=== PATIENT | male | born 1955 | race Caucasian/White ===

== ENCOUNTER 2016-10-22 20:07 | Observation (INO) | payer BC ==
[~2016-10-22] VITALS: Ht 172.7 cm; Wt 84.0 kg
[2016-10-22] MEDS ORDERED: SOD CHLORIDE 0.9% 500 ML IV STA (23:56)
[2016-10-22] MEDS ORDERED: ALBUTEROL 0.083% (NEB) 2.5 MG/3 ML AMP NEB STA (23:59)
[2016-10-23] VITALS (11 sets, daily range): BP systolic 124–143; BP diastolic 74–84; PULSE 67–90; RESP 17–19; Ht 172.7 cm; Wt 84.0 kg
[2016-10-23 00:56] LABS: BASOPHILS % 0.5 % (0.0-2.0); EOSINOPHILS # 0.1 10^3/ul (0.0-0.5); EOSINOPHILS % 1.1 % (0.0-7.0); HEMATOCRIT 37.5 % (42.0-52.0); HEMOGLOBIN 12.4 g/dl (14.0-18.0); LYMPHOCYTES # 2.1 10^3/ul (0.8-2.9); LYMPHOCYTES % 32.5 % (15.0-51.0); MEAN CORPUSCULAR HEMOGLOBIN 29.3 pg (29.0-33.0); MEAN CORPUSCULAR HGB CONC 33.1 g/dl (32.0-37.0); MEAN CORPUSCULAR VOLUME 88.7 fl (82.0-101.0); MEAN PLATELET VOLUME 9.7 fl (7.4-10.4); MONOCYTE # 0.7 10^3/ul (0.3-0.9); MONOCYTES % 10.5 % (0.0-11.0); NEUTROPHILS % 55.1 % (39.0-77.0); PLATELET COUNT 159 10^3/UL (140-415); RED BLOOD COUNT 4.23 10^6/ul (4.70-6.10); RED CELL DISTRIBUTION WIDTH 12.5 % (11.5-14.5); WHITE BLOOD COUNT 6.6 10^3/ul (4.8-10.8)
[2016-10-23 01:11] LABS: INR 0.91; PROTIME 12.2 Sec (12.2-14.2)
[2016-10-23 01:12] LABS: PARTIAL THROMBOPLASTIN TIME 23.7 Sec (25.0-35.0)
[2016-10-23 01:15] LABS: ALANINE AMINOTRANSFERASE 43 IU/L (13-69); ALBUMIN 4.2 g/dl (3.3-4.9); ALBUMIN/GLOBULIN RATIO 1.13; ALKALINE PHOSPHATASE 48 IU/L (42-121); ANION GAP 19 (8-16); ASPARTATE AMINO TRANSFERASE 25 IU/L (15-46); BILIRUBIN,INDIRECT 0.1 mg/dl (0-1.1); BILIRUBIN,TOTAL 0.1 mg/dl (0.2-1.3); BLOOD UREA NITROGEN 30 mg/dl (7-20); CALCIUM 10.5 mg/dl (8.4-10.2); CARBON DIOXIDE 25 mmol/L (21-31); CHLORIDE 103 mmol/L (97-110); CREATININE 0.98 mg/dl (0.61-1.24); GLUCOSE 83 mg/dl (70-220); POTASSIUM 4.7 mmol/L (3.5-5.1); SODIUM 142 mmol/L (135-144); TOTAL PROTEIN 7.9 g/dl (6.1-8.1)
--- NOTE | 2016-10-23 01:18 | RADRPT ---
PROCEDURE: XR Chest. CLINICAL INDICATION: Shortness of breath TECHNIQUE: Single frontal view of the chest was obtained COMPARISON: None FINDINGS: The heart and mediastinum are within normal limits. The lungs are clear. There is no pleural effusion or pneumothorax seen. ECG leads projected over the chest. Degenerativ e changes in thoracic spine. The patient is minimally rotated to the right. Minimal elevation of t he right hemidiaphragm. Possible surgical clip projected over the right lateral chest wall. IMPRESSION: No acute disease. Please see above. RPTAT: HJES .Eber Tomlinson MD, MD Date Time Electronically viewed and signed by .Eber Tomlinson MD, MD on 10/23/2016 01:18 .S/
[2016-10-23 01:22] LABS: B-TYPE NATRIURETIC PEPTIDE 19 PG/ML (0-125)
[2016-10-23 01:32] LABS: TROPONIN-I < 0.012 ng/ml (0.00-0.12)
[2016-10-23] MEDS ORDERED: SIMV20TA PO (01:48)
[2016-10-23] MEDS ORDERED: SITA1TAB5 PO (01:48)
[2016-10-23] MEDS ORDERED: GLIM4TAB PO (01:48)
[2016-10-23] MEDS ORDERED: BENA10TA48 PO (01:48)
[2016-10-23] MEDS ORDERED: DOCO1CAP2 PO (01:48)
[2016-10-23] MEDS ORDERED: ASPI-664 PO (01:48)
[2016-10-23] MEDS ORDERED: METO25TA7 PO (01:48)
[2016-10-23] MEDS ORDERED: FENO145T19 PO (01:48)
--- NOTE | 2016-10-23 04:01 | ERA ---
ER Documentation Chief Complaint Date/Time DATE: 10/23/16 TIME: 04:00 Chief Complaint c/o cough and easily fatigued x2-3 weeks. Hx: heart stent, DM, HTN HPI 61-year-old male complains of cough but is easily fatigued over the past 2-3 weeks. Also complains of chest pain. Chest pain is mild to moderate intensity no exacerbating or alleviating factors. Complains of exertional dyspnea as well patient has history of cardiac stenting in the past along with diabetes and hypertension. ROS All systems reviewed and are negative except as per history of present illness. Medications Home Meds Reported Medications Aspirin* (Aspirin* EC) 81 Mg Tablet.dr, 81 MG PO DAILY, TAB 10/23/16 Docosahexanoic Acid/Epa (Fish Oil Concentrate Softgel) 1 Each Capsule, 1 EACH PO , CAP 10/23/16 Sitagliptin Phos/Metformin HCl (Janumet 50-1,000 mg Tablet) 1 Each Tablet, 1 EACH PO BID, TAB 10/23/16 Fenofibrate Nanocrystallized* (Fenofibrate*) 145 Mg Tablet, 145 MG PO DAILY, TAB 10/23/16 Metoprolol Succinate* (Toprol XL*) 25 Mg Tab.sr.24h, 25 MG PO BID, #30 TAB 10/23/16 Glimepiride* (Glimepiride*) 4 Mg Tablet, 4 MG PO WITH BREAKFAST, TAB 10/23/16 Simvastatin* (Zocor*) 20 Mg Tablet, 20 MG PO QHS, #30 TAB 10/23/16 Benazepril Hcl* (Benazepril Hcl*) 10 Mg Tablet, 10 MG PO DAILY, #30 TAB 10/23/16 Allergies Allergies: Coded Allergies: No Known Allergy (Unverified , 10/23/16) PMhx/Soc History of Surgery: Yes (BILAT INGUENAL HERNIA) Anesthesia Reaction: No Hx Neurological Disorder: No Hx Respiratory Disorders: No Hx Cardiac Disorders: Yes (ANGIOPLASTY, HYPERLIPIDEMIA) Hx Psychiatric Problems: No Hx Miscellaneous Medical Probl: Yes (DIABETES) Hx Alcohol Use: Yes Hx Substance Use: No Hx Tobacco Use: No Smoking Status: Never smoker Physical Exam Vitals Vital Signs Date Time Temp Pulse Resp B/P Pulse Ox O2 Delivery O2 Flow Rate FiO2 10/23/16 02:33 79 20 137/84 98 Room Air 10/23/16 01:15 86 14 131/83 96 Room Air 10/23/16 00:29 3.0 10/23/16 00:25 74 15 122/74 97 Room Air 10/23/16 00:25 Nasal Cannula 2 10/23/16 00:18 74 18 100 Nasal Cannula 3.0 10/22/16 20:29 98.2 83 20 121/72 97 Physical Exam Const: [] Head: Atraumatic Eyes: Normal Conjunctiva ENT: Normal External Ears, Nose and Mouth. Neck: Full range of motion..~ No meningismus. Resp: Clear to auscultation bilaterally Cardio: Regular rate and rhythm, no murmurs Abd: Soft, non tender, non distended. Normal bowel sounds Skin: No petechiae or rashes Back: No midline or flank tenderness Ext: No cyanosis, or edema Neur: Awake and alert Psych: Normal Mood and Affect Result Diagram: 10/23/16 0020 10/23/16 0020 Results 24 hrs Laboratory Tests Test 10/23/16 00:20 White Blood Count 6.610^3/ul Red Blood Count 4.2310^6/ul Hemoglobin 12.4g/dl Hematocrit 37.5% Mean Corpuscular Volume 88.7fl Mean Corpuscular Hemoglobin 29.3pg Mean Corpuscular Hemoglobin Concent 33.1g/dl Red Cell Distribution Width 12.5% Platelet Count 36472^3/UL Mean Platelet Volume 9.7fl Neutrophils % 55.1% Lymphocytes % 32.5% Monocytes % 10.5% Eosinophils % 1.1% Basophils % 0.5% Nucleated Red Blood Cells % 0.0/100WBC Neutrophils # (Manual) 3.610^3/ul Lymphocytes # 2.110^3/ul Monocytes # 0.710^3/ul Eosinophils # 0.110^3/ul Basophils # 0.010^3/ul Nucleated Red Blood Cells # 0.010^3/ul Prothrombin Time 12.2Sec Prothrombin Time Ratio 1.0 INR International Normalized Ratio 0.91 Activated Partial Thromboplast Time 23.7Sec Sodium Level 142mmol/L Potassium Level 4.7mmol/L Chloride Level 103mmol/L Carbon Dioxide Level 25mmol/L Anion Gap 19 Blood Urea Nitrogen 30mg/dl Creatinine 0.98mg/dl Glucose Level 83mg/dl Calcium Level 10.5mg/dl Total Bilirubin 0.1mg/dl Direct Bilirubin 0.00mg/dl Indirect Bilirubin 0.1mg/dl Aspartate Amino Transf (AST/SGOT) 25IU/L Alanine Aminotransferase (ALT/SGPT) 43IU/L Alkaline Phosphatase 48IU/L Troponin I < 0.012ng/ml B-Type Natriuretic Peptide 19PG/ML Total Protein 7.9g/dl Albumin 4.2g/dl Globulin 3.70g/dl Albumin/Globulin Ratio 1.13 Current Medications Medications (Trade) Dose Ordered Sig/Janel Route PRN Reason Start Time Stop Time Status Last Admin Dose Admin Sodium Chloride (NS) 500 ml @ 500 mls/hr Q1H STAT IV 10/22/16 23:56 10/23/16 00:55 DC 10/22/16 23:56 Albuterol (Proventil 0.083% (Neb)) 5 mg ONCE STAT NEB 10/22/16 23:59 10/23/16 00:00 DC 10/23/16 00:17 Procedures/MDM EKG: Rate/Rhythm: Normal Sinus Rhythm QRS, ST, T-waves: No changes consistent w/ acute ischemia Impression: No evidence of ischemia or arrhythmia Chest X-ray 1V Interpreted by me: Soft Tissue: No acute abnormalities Bones: No acute abnormalities Mediastinum/Cardiac Silhouette/Lungs: No acute abnormalities Patient's symptoms are concerning for cardiac cause will require inpatient workup and continuous monitoring. Further w/u for ischemia, arrhythmia, PE or dissection will be deferred to the inpatient team. Accepting Care Team: Current data and ongoing care discussed. Time: 3:45 AM primary Provider: maximo Consulting: [[employer]OX[employer]] Outstanding Data: none Departure Diagnosis: Primary Impression: Fatigue Qualified Code: R53.83 - Fatigue, unspecified type Additional Impression: Chest pain Qualified Code: R07.9 - Chest pain, unspecified type Condition: Serious DIO POON Oct 23, 2016 04:01
[2016-10-23] MEDS ORDERED: ACETAMINOPHEN 325 MG TAB PO PRN (04:30)
[2016-10-23] MEDS ORDERED: MAGNESIUM HYDROXIDE 30ML CUP PO PRN (04:30)
[2016-10-23] MEDS ORDERED: ONDANSETRON 4 MG INJ IV PRN (04:30)
[2016-10-23] MEDS ORDERED: BISACODYL 10 MG SUPP PR PRN (04:30)
[2016-10-23] MEDS ORDERED: LORAZEPAM 0.5 MG TAB PO PRN (04:30)
[2016-10-23] MEDS ORDERED: NITROGLYCERIN (SL) 0.4 MG TAB SL PRN (04:30)
[2016-10-23] MEDS ORDERED: DOCUSATE SODIUM 100 MG CAP PO PRN (04:30)
[2016-10-23] MEDS ORDERED: NACL 0.9% 3 ML SYG IV SCH (04:30)
[2016-10-23] MEDS ORDERED: ALBUTEROL/IPRATROPIUM (NEB) 3 ML AMP HHN PRN (04:30)
[2016-10-23] MEDS ORDERED: morphine 2 MG INJ IV PRN (04:30)
[2016-10-23] MEDS ORDERED: GLUCOSE GEL 15 GRAM TUBE PO PRN ×2 (05:00)
[2016-10-23] MEDS ORDERED: DEXTROSE 50% 50 ML SYRINGE IV PRN ×2 (05:00)
[2016-10-23] MEDS ORDERED: GLUCAGON 1 MG INJ IM PRN (05:00)
[2016-10-23] MEDS ORDERED: GLUCOSE GEL 15 GRAM TUBE BUCCAL PRN (05:00)
[2016-10-23] MEDS: SOD CHLORIDE 0.9% 1,000 ML IV SCH ×3 (05:53→20:43)
[2016-10-23] MEDS: INSULIN ASPART [NOVOLOG] 3 ML PEN SC SCH ×4 (07:55→20:44)
[2016-10-23 08:39] LABS: CHOL/HDL RATIO 6.4 RATIO
[2016-10-23] MEDS: ASPIRIN (EC) 81 MG TAB PO SCH (08:49)
[2016-10-23] MEDS: BENAZEPRIL 10 MG TAB PO SCH (08:50)
[2016-10-23] MEDS: METOPROLOL 25 MG TAB PO SCH ×2 (08:50→20:43)
[2016-10-23] MEDS: FENOFIBRATE 145 MG TAB PO SCH (08:51)
[2016-10-23] MEDS: FAMOTIDINE 20 MG TAB PO SCH ×2 (08:51→20:44)
[2016-10-23 08:53] LABS: CREATINE KINASE 141 IU/L (23-200)
[2016-10-23 09:02] LABS: CK-MB 1.93 ng/ml (0.0-2.4)
[2016-10-23 09:54] LABS: TROPONIN-I < 0.012 ng/ml (0.00-0.12)
[2016-10-23] MEDS: ENOXAPARIN 40 MG/0.4 ML SYG SC SCH (10:35)
[2016-10-23] MEDS ORDERED: REGADENOSON 0.4 MG/5 ML SYG ONE (12:45)
[2016-10-23] MEDS: LINAGLIPTIN 5 MG TABLET PO SCH (13:00)
--- NOTE | 2016-10-23 13:08 | RADRPT ---
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 Physician: ROS MENDOZA Quality: Adequate Procedures: Transthoracic echocardiogram with complete 2D, M-Mode, and doppler examination. Indications: Chest Pain. 2D/M Mode Doppler Measurement Value Normal Ranges Measurement Value Normal Ranges LVIDd 2D 3.3 3.5 - 5.6 cm MAIKEL Vmax 1.2 cm2 LVIDs 2D 2.2 2.1 - 4.1 cm AV Peak Ren 1.7 m/sec FS 2D 33.4 % AV Peak PG 12.0 mmHg LVPWd 2D 1.3 0.6 - 1.1 cm LVOT Peak Ren 0.8 m/sec IVSd 2D 1.5 0.6 - 1.1 cm LVOT Peak PG 3.0 mmHg IVS/LVPW 2D 1.1 MV E Peak Ren 1.0 m/sec AoR Diam 2D 3.1 2.0 - 3.7 cm MV A Peak Ren 0.7 m/sec LA/Ao 2D 1 0 - 1 MV E/A 1.5 EDV 2D 37.6 cm3 MV Decel Time 211 msec ESV 2D 11.1 cm3 MV E/A 1.5 LA Dimen 2D 3.8 2.3 - 4.0 cm TR Peak Ren 2.2 m/sec LVOT Diam 1.8 cm TR Peak PG 19.0 mmHg LVOT Area 2.5 cm2 RVSP 22.0 mmHg Findings Left Ventricle: Normal left ventricular systolic function. Normal left ventricular cavity size. Sigmoid septum. Ejection fraction is visually estimated at 65 %. Tissue Doppler/Mitral Doppler indices are consistent with impaired relaxation (Stage I diastolic dysfunction). Right Ventricle: Normal right ventricular size. Normal right ventricular systolic function. Left Atrium: The left atrium is normal in size. Right Atrium: The right atrium is normal in size. Mitral Valve: Mild mitral leaflet calcification. Mild mitral annular calcification. Trace mitral regurgitation. Aortic Valve: No significant aortic stenosis or insufficiency. Aortic sclerosis without stenosis. Tricuspid Valve: Normal appearance and function of the tricuspid valve with trace physiologic regurgitation. Estimated peak PA systolic pressure 22 mmHg. Pulmonic Valve: Pulmonic valve not well visualized. There is trace pulmonic regurgitation. Pericardium: Normal pericardium with no significant pericardial effusion. Aorta: Normal aortic root. IVC: Normal size and normal respiratory collapse consistent with normal right atrial pressure. Conclusions 1.Normal left ventricular systolic function. Normal left ventricular cavity size. Sigmoid septum. Ejection fraction is visually estimated at 65 %. Tissue Doppler/Mitral Doppler indices are consistent with impaired relaxation (Stage I diastolic dysfunction). 2.Normal right ventricular size. Normal right ventricular systolic function. 3.The left atrium is normal in size. 4.The right atrium is normal in size. 5.No significant valvular stenosis or regurgitation seen. 6.Normal pericardium with no significant pericardial effusion. Electronically Signed By: Aleksander Jiménez 23-Oct-2016 13:07:30 00 Patient Name: GAYLA DE LEON Study Date: 23-Oct-2016 [id number]
--- NOTE | 2016-10-23 13:40 | CONS ---
Date/Time of Note Date/Time of Note DATE: 10/23/16 TIME: 13:33 Assessment/Plan Assessment/Plan Additional Assessment/Plan Dyspnea with exertion Preserved ejection fraction CAD with distant history of PCI Hypertension -Serial cardiac enzymes have remained negative, echocardiogram with preserved ejection fraction. For nuclear cardiac perfusion study today. Given patient with symptoms even with minimal activity (he states he gets short of breath even after walking half a yard), would consider concurrently evaluating other noncardiac causes of patient's symptoms as well. Continue antiplatelet therapy , beta-frank as heart rate and blood pressure permits, statin therapy if no contraindication Consultation Date/Type/Reason Admit Date/Time Oct 23, 2016 at 03:33 Type of Consultation: cv Reason for Consultation Shortness of breath Hx of Present Illness This is a 61-year-old male with past medical history of CAD with PCI over 10 years ago, hypertension who presents with shortness of breath with exertion for 3 years. Patient states even after walking 5 or 6 steps, he feels short of breath. He denies any chest pain or discomfort with activity or with rest. Because of worsening symptoms, he came to his room for further evaluation and care. He states he is compliant with his medications. He denies shortness of breath with lying down flat. He denies lower extremity edema. 12 point review of systems was performed with all pertinent positives and negatives mentioned above and all else is negative Past Medical History Medical History: coronary artery disease, hypertension Past Surgical History Past Surgical Hx: angioplasty Family History Significant Family History: no pertinent family hx Social History Smoking Status: Former smoker Other Social History Lives at home Exam/Review of Systems Vital Signs Vitals Vital Signs Date Time Temp Pulse Resp B/P Pulse Ox O2 Delivery O2 Flow Rate FiO2 10/23/16 12:28 67 10/23/16 12:09 97.8 18 124/81 95 10/23/16 02:33 Room Air 10/23/16 00:29 3.0 Exam No apparent distress, no dyspnea with speaking Constitutional: alert, oriented Head: normocephalic Respiratory: clear to auscultation, normal air movement Cardiovascular: other (S1-S2 heard, no murmurs appreciated), regular rate and rhythm Gastrointestinal: bowel sounds, non-tender, soft Extremities: other (No edema) Results Result Diagram: 10/23/16 0020 10/23/16 0020 Results 24 hrs Laboratory Tests Test 10/23/16 00:20 10/23/16 07:23 10/23/16 08:47 10/23/16 11:41 White Blood Count 6.6 Red Blood Count 4.23 L Hemoglobin 12.4 L Hematocrit 37.5 L Mean Corpuscular Volume 88.7 Mean Corpuscular Hemoglobin 29.3 Mean Corpuscular Hemoglobin Concent 33.1 Red Cell Distribution Width 12.5 Platelet Count 159 Mean Platelet Volume 9.7 Neutrophils % 55.1 Lymphocytes % 32.5 Monocytes % 10.5 Eosinophils % 1.1 Basophils % 0.5 Nucleated Red Blood Cells % 0.0 Neutrophils # (Manual) 3.6 Lymphocytes # 2.1 Monocytes # 0.7 Eosinophils # 0.1 Basophils # 0.0 Nucleated Red Blood Cells # 0.0 Prothrombin Time 12.2 Prothrombin Time Ratio 1.0 INR International Normalized Ratio 0.91 Activated Partial Thromboplast Time 23.7 L Sodium Level 142 Potassium Level 4.7 Chloride Level 103 Carbon Dioxide Level 25 Anion Gap 19 H Blood Urea Nitrogen 30 H Creatinine 0.98 Glucose Level 83 Calcium Level 10.5 H Total Bilirubin 0.1 L Direct Bilirubin 0.00 Indirect Bilirubin 0.1 Aspartate Amino Transf (AST/SGOT) 25 Alanine Aminotransferase (ALT/SGPT) 43 Alkaline Phosphatase 48 Troponin I < 0.012 < 0.012 B-Type Natriuretic Peptide 19 Total Protein 7.9 Albumin 4.2 Globulin 3.70 H Albumin/Globulin Ratio 1.13 Hemoglobin A1c 7.6 H Creatine Kinase 141 Creatine Kinase Index 1.4 Creatinine Kinase MB (Mass) 1.93 Triglycerides Level 767 H Cholesterol Level 201 H LDL Cholesterol, Calculated 17 HDL Cholesterol 31 Cholesterol/HDL Ratio 6.4 Bedside Glucose 120 119 Medications Medications Current Medications Aspirin (Halfprin) 81 mg DAILY PO Last administered on 10/23/16 08:49; Admin Dose 81 MG; Start 10/23/16 at 09:00 Benazepril HCl (Lotensin) 10 mg DAILY PO Last administered on 10/23/16 08:50; Admin Dose 10 MG; Start 10/23/16 at 09:00 Fenofibrate (Tricor) 145 mg DAILY PO Last administered on 10/23/16 08:51; Admin Dose 145 MG; Start 10/23/16 at 09:00 Atorvastatin Calcium (Lipitor) 10 mg DAILY@21 PO ; Start 10/23/16 at 21:00 Metoprolol Tartrate (Lopressor) 25 mg BID PO Last administered on 10/23/16 08: 50; Admin Dose 25 MG; Start 10/23/16 at 09:00 Diagnostic Test (Pha) 1 ea 1 ea 02 XX ; Start 10/24/16 at 02:00 Sodium Chloride (NS) 1,000 ml @ 75 mls/hr [id number] IV Last administered on 10/23 05:53; Admin Dose 75 MLS/HR; Start 10/23/16 at 04:04 Lorazepam (Ativan) 0.5 mg Q8H PRN PO ANXIETY; Start 10/23/16 at 04:30 Ondansetron HCl (Zofran Inj) 4 mg Q6H PRN IV NAUSEA AND/OR VOMITING; Start at 04:30 Nitroglycerin (Nitroglycerin (Sl Tab) 0.4 Mg) 1 tab Q5M PRN SL CHEST PAIN; Start 10/23/16 at 04:30 Acetaminophen (Tylenol Tab) 650 mg Q6H PRN PO PAIN LEVEL 1-3 OR FEVER; Start at 04:30 Morphine Sulfate (morphine) 2 mg Q4H PRN IV PAIN LEVEL 7-10; Start 10/23/16 at 04:30 Docusate Sodium (Colace) 100 mg Q12H PRN PO CONSTIPATION; Start 10/23/16 at 04: 30 Magnesium Hydroxide (Milk Of Mag) 30 ml DAILY PRN PO CONSTIPATION; Start at 04:30 Bisacodyl (Dulcolax Supp) 10 mg DAILY PRN [place] CONSTIPATION; Start 10/23/16 at 04 :30 Famotidine (Pepcid) 20 mg Q12 PO Last administered on 10/23/16 08:51; Admin Dose 20 MG; Start 10/23/16 at 09:00 Enoxaparin Sodium (Lovenox) 40 mg DAILY SC Last administered on 10/23/16 10:35 ; Admin Dose 40 MG; Start 10/23/16 at 09:00 Miscellaneous Information 1 ea NOTE XX ; Start 10/23/16 at 05:00 Glucose (Glutose) 15 gm Q15M PRN PO DECREASED GLUCOSE; Start 10/23/16 at 05:00 Glucose (Glutose) 22.5 gm Q15M PRN PO DECREASED GLUCOSE; Start 10/23/16 at 05: 00 Dextrose (D50w Syringe) 25 ml Q15M PRN IV DECREASED GLUCOSE; Start 10/23/16 at 05:00 Dextrose (D50w Syringe) 50 ml Q15M PRN IV DECREASED GLUCOSE; Start 10/23/16 at 05:00 Glucagon (Glucagen) 1 mg Q15M PRN IM DECREASED GLUCOSE; Start 10/23/16 at 05:00 Glucose (Glutose) 15 gm Q15M PRN BUCCAL DECREASED GLUCOSE; Start 10/23/16 at 05 :00 Linagliptin (Tradjenta) 5 mg DAILY PO ; Start 10/23/16 at 13:00 Procedures Procedures ECG demonstrates sinus rhythm, normal QRS duration, no significant ischemic ST abnormalities Aleksander Jiménez DO Oct 23, 2016 13:40
--- NOTE | 2016-10-23 15:58 | RADRPT ---
PROCEDURE: LEXISCAN MYOCARDIAL PERFUSION STUDY CLINICAL INDICATION: Chest pain TECHNIQUE: Lexiscan 0.4 mg intravenously separate acquisition, gated myocardial perfusion SPECT us ing 10 mCi intravenously at stress and 32 mCi intravenously at rest was performed using the rest/str ess sequence. Poststress SPECT images were obtained in the supine position. COMPARISON: None FINDINGS: Perfusion images reveal no evidence of perfusion defects. Although the TID is calculated at 1.14, st ress images of the heart appear visually larger than the rest images. Poststress gated SPECT images demonstrate no wall motion abnormalities. IMPRESSION: 1. No evidence of perfusion defects. However, stress images of the heart appear visually larger kaleb n the rest images, which raises possibility of transient ischemic dilatation. 2. No wall motion abnormalities are noted. 3. The left ventricle ejection fraction at stress is 56% . RPTAT: HH Physician Hawa Date Time Electronically viewed and signed by Physician Hawa on 10/23/2016 15:58 /
--- NOTE | 2016-10-23 16:46 | HP ---
Date/Time of Note Date/Time of Note DATE: 10/23/16 TIME: 16:05 Assessment/Plan VTE Prophylaxis VTE Prophylaxis Intervention: LMWH Lines/Catheters IV Catheter Type (from [facility]): Peripheral IV Urinary Cath still in place: No Assessment/Plan Assessment/Plan 61-year-old male with: 1. Chest pain: Patient has been ruled out for acute coronary syndrome, 2D echocardiogram stable, stress test is equivocal per Dr Jiménez, plan for Angio in AM NPO after MN 2. Coronary artery disease: Continue current medications. Follow-up with cardiology within 1-2 weeks if needed 3. Hypertension: Continue current medications 4. Hyperlipidemia: continue current medications 5. Diabetes mellitus: Continue home medications Prophylaxis: Lovenox for DVT prophylaxis, Pepcid for GI prophylaxis Disposition: Angio tomorrow HPI/ROS Admit Date/Time Admit Date/Time Oct 23, 2016 at 03:33 Hx of Present Illness Chief complaint: Dyspnea on exertion and decreased exercise tolerance History of presenting illness: This is a 61-year-old male with history of coronary artery disease, he is followed by Dr. Ventura as an outpatient, sent to the emergency department with complaint of decreased exercise tolerance and dyspnea on exertion. Patient reports that he cannot walk too far without being short of breath, he denies chest pain, denies lower extremity edema. He claims he has been compliant with his medication, however he has not been compliant with follow-up with cardiology. He has no shortness of breath while lying flat. He denies any fevers, chills, recent infection. Quit smoking 15 years ago. He denies any previous history of COPD or diagnosis of COPD. 3 sets of Cardiac enzymes are negative, echocardiogram stable. Patient has been evaluated by cardiology and stress test is equivocal per Dr Jiménez, will keep inpatient for Angiogram in AM. ROS Constitutional: no complaints ENT: no complaints Respiratory: shortness of breath Cardiovascular: no complaints Genitourinary: no complaints Musculoskeletal: no complaints Skin: no complaints Neurologic: no complaints Endocrine: no complaints Psychological: no complaints PMH/Family/Social Past Medical History Medical History: coronary artery disease, hypertension Past Surgical History Past Surgical Hx: angioplasty (More than 10 years ago) Social History Alcohol Use: none Smoking Status: Former smoker Drug Use: none Exam/Review of Systems Vital Signs Vitals Vital Signs Date Time Temp Pulse Resp B/P Pulse Ox O2 Delivery O2 Flow Rate FiO2 8/30/17 16:00 98.3 76 18 124/74 97 10/23/16 02:33 Room Air 10/23/16 00:29 3.0 Exam Constitutional: alert, oriented, well developed Respiratory: clear to auscultation, normal air movement Cardiovascular: nl pulses, regular rate and rhythm Gastrointestinal: non-tender, soft Musculoskeletal: nl extremities to inspection Extremities: normal pulses, other (No edema, clubbing or cyanosis) 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, nl mental status, nl speech, nl strength Labs Result Diagram: 10/23/16 0020 10/23/16 0020 Medications Medications Current Medications Aspirin (Halfprin) 81 mg DAILY PO Last administered on 10/23/16 08:49; Admin Dose 81 MG; Start 10/23/16 at 09:00 Benazepril HCl (Lotensin) 10 mg DAILY PO Last administered on 10/23/16 08:50; Admin Dose 10 MG; Start 10/23/16 at 09:00 Fenofibrate (Tricor) 145 mg DAILY PO Last administered on 10/23/16 08:51; Admin Dose 145 MG; Start 10/23/16 at 09:00 Atorvastatin Calcium (Lipitor) 10 mg DAILY@21 PO ; Start 10/23/16 at 21:00 Metoprolol Tartrate (Lopressor) 25 mg BID PO Last administered on 10/23/16 08: 50; Admin Dose 25 MG; Start 10/23/16 at 09:00 Diagnostic Test (Pha) 1 ea 1 ea 02 XX ; Start 10/24/16 at 02:00 Sodium Chloride (NS) 1,000 ml @ 75 mls/hr [id number] IV Last administered on 10/23 05:53; Admin Dose 75 MLS/HR; Start 10/23/16 at 04:04 Lorazepam (Ativan) 0.5 mg Q8H PRN PO ANXIETY; Start 10/23/16 at 04:30 Ondansetron HCl (Zofran Inj) 4 mg Q6H PRN IV NAUSEA AND/OR VOMITING; Start at 04:30 Nitroglycerin (Nitroglycerin (Sl Tab) 0.4 Mg) 1 tab Q5M PRN SL CHEST PAIN; Start 10/23/16 at 04:30 Acetaminophen (Tylenol Tab) 650 mg Q6H PRN PO PAIN LEVEL 1-3 OR FEVER; Start at 04:30 Morphine Sulfate (morphine) 2 mg Q4H PRN IV PAIN LEVEL 7-10; Start 10/23/16 at 04:30 Docusate Sodium (Colace) 100 mg Q12H PRN PO CONSTIPATION; Start 10/23/16 at 04: 30 Magnesium Hydroxide (Milk Of Mag) 30 ml DAILY PRN PO CONSTIPATION; Start at 04:30 Bisacodyl (Dulcolax Supp) 10 mg DAILY PRN [place] CONSTIPATION; Start 10/23/16 at 04 :30 Famotidine (Pepcid) 20 mg Q12 PO Last administered on 10/23/16 08:51; Admin Dose 20 MG; Start 10/23/16 at 09:00 Enoxaparin Sodium (Lovenox) 40 mg DAILY SC Last administered on 10/23/16 10:35 ; Admin Dose 40 MG; Start 10/23/16 at 09:00 Miscellaneous Information 1 ea NOTE XX ; Start 10/23/16 at 05:00 Glucose (Glutose) 15 gm Q15M PRN PO DECREASED GLUCOSE; Start 10/23/16 at 05:00 Glucose (Glutose) 22.5 gm Q15M PRN PO DECREASED GLUCOSE; Start 10/23/16 at 05: 00 Dextrose (D50w Syringe) 25 ml Q15M PRN IV DECREASED GLUCOSE; Start 10/23/16 at 05:00 Dextrose (D50w Syringe) 50 ml Q15M PRN IV DECREASED GLUCOSE; Start 10/23/16 at 05:00 Glucagon (Glucagen) 1 mg Q15M PRN IM DECREASED GLUCOSE; Start 10/23/16 at 05:00 Glucose (Glutose) 15 gm Q15M PRN BUCCAL DECREASED GLUCOSE; Start 10/23/16 at 05 :00 Linagliptin (Tradjenta) 5 mg DAILY PO ; Start 10/23/16 at 13:00 Procedures Procedures Echocardiogram Report Patient Name: GAYLA DE LEON Gender: Male Date: 1955 Study Date: 23-Oct-2016 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 Physician: ROS MENDOZA Quality: Adequate Procedures: Transthoracic echocardiogram with complete 2D, M-Mode, and doppler examination. Indications: Chest Pain. 2D/M Mode Doppler Measurement Value Normal Ranges Measurement Value Normal Ranges LVIDd 2D 3.3 3.5 - 5.6 cm MAIKEL Vmax 1.2 cm2 LVIDs 2D 2.2 2.1 - 4.1 cm AV Peak Ren 1.7 m/sec FS 2D 33.4 % AV Peak PG 12.0 mmHg LVPWd 2D 1.3 0.6 - 1.1 cm LVOT Peak Ren 0.8 m/sec IVSd 2D 1.5 0.6 - 1.1 cm LVOT Peak PG 3.0 mmHg IVS/LVPW 2D 1.1 MV E Peak Ren 1.0 m/sec AoR Diam 2D 3.1 2.0 - 3.7 cm MV A Peak Ren 0.7 m/sec LA/Ao 2D 1 0 - 1 MV E/A 1.5 EDV 2D 37.6 cm3 MV Decel Time 211 msec ESV 2D 11.1 cm3 MV E/A 1.5 LA Dimen 2D 3.8 2.3 - 4.0 cm TR Peak Ren 2.2 m/sec LVOT Diam 1.8 cm TR Peak PG 19.0 mmHg LVOT Area 2.5 cm2 RVSP 22.0 mmHg Findings Left Ventricle: Normal left ventricular systolic function. Normal left ventricular cavity size. Sigmoid septum. Ejection fraction is visually estimated at 65 %. Tissue Doppler/Mitral Doppler indices are consistent with impaired relaxation (Stage I diastolic dysfunction). Right Ventricle: Normal right ventricular size. Normal right ventricular systolic function. Left Atrium: The left atrium is normal in size. Right Atrium: The right atrium is normal in size. Mitral Valve: Mild mitral leaflet calcification. Mild mitral annular calcification. Trace mitral regurgitation. Aortic Valve: No significant aortic stenosis or insufficiency. Aortic sclerosis without stenosis. Tricuspid Valve: Normal appearance and function of the tricuspid valve with trace physiologic regurgitation. Estimated peak PA systolic pressure 22 mmHg. Pulmonic Valve: Pulmonic valve not well visualized. There is trace pulmonic regurgitation. Pericardium: Normal pericardium with no significant pericardial effusion. Aorta: Normal aortic root. IVC: Normal size and normal respiratory collapse consistent with normal right atrial pressure. Conclusions 1. Normal left ventricular systolic function. Normal left ventricular cavity size. Sigmoid septum. Ejection fraction is visually estimated at 65 %. Tissue Doppler/Mitral Doppler indices are consistent with impaired relaxation (Stage I diastolic dysfunction). 2. Normal right ventricular size. Normal right ventricular systolic function. 3. The left atrium is normal in size. 4. The right atrium is normal in size. 5. No significant valvular stenosis or regurgitation seen. 6. Normal pericardium with no significant pericardial effusion. Electronically Signed By: Aleksander Jiménez 23-Oct-2016 13:07:30 -0700 PROCEDURE: LEXISCAN MYOCARDIAL PERFUSION STUDY CLINICAL INDICATION: Chest pain TECHNIQUE: Lexiscan 0.4 mg intravenously separate acquisition, gated myocardial perfusion SPECT using 10 mCi intravenously at stress and 32 mCi intravenously at rest was performed using the rest/stress sequence. Poststress SPECT images were obtained in the supine position. COMPARISON: None FINDINGS: Perfusion images reveal no evidence of perfusion defects. Although the TID is calculated at 1.14, stress images of the heart appear visually larger than the rest images. Poststress gated SPECT images demonstrate no wall motion abnormalities. IMPRESSION: 1. No evidence of perfusion defects. However, stress images of the heart appear visually larger than the rest images, which raises possibility of transient ischemic dilatation. 2. No wall motion abnormalities are noted. 3. The left ventricle ejection fraction at stress is 56% . RPTAT: HH Physician Hawa Date Time Electronically viewed and signed by Physician Hawa on 10/23/2016 15 :58 KONRAD MENDOZA Oct 23, 2016 16:16
--- NOTE | 2016-10-23 16:47 | PDOCDIS ---
Discharge Instructions CONDITION Patient Condition: Stable HOME CARE INSTRUCTIONS: Diet Instructions: Low Fat /CholesterolSpecial Diet: Diabetic diet ACTIVITY: Activity Restrictions: No Restrictions FOLLOW UP/APPOINTMENTS Follow-up Plan Follow-up with PCP within 1 week Follow-up with cardiology as an outpatient in 1-2 weeks as needed KONRAD MENDOZA Oct 23, 2016 16:47
[2016-10-23] MEDS ORDERED: metFORMIN 500 MG TAB PO SCH (17:55)
[2016-10-23 18:13] LABS: CREATINE KINASE 797 IU/L (23-200)
[2016-10-23 18:37] LABS: TROPONIN-I < 0.012 ng/ml (0.00-0.12)
[2016-10-23] MEDS ORDERED: ATORVASTATIN 10 MG TAB PO SCH (21:00)
[2016-10-24] VITALS (46 sets, daily range): BP systolic 117–170; BP diastolic 69–109; PULSE 41–88; RESP 11–25
[2016-10-24] MEDS ORDERED: ACCU-CHEK XX SCH (02:00)
[2016-10-24 07:45] LABS: CALCIUM 9.5 mg/dl (8.4-10.2); CREATININE 0.7 mg/dl (0.61-1.24); POTASSIUM 4.5 mmol/L (3.5-5.1)
[2016-10-24 07:55] LABS: MAGNESIUM 1.6 mg/dl (1.7-2.5); PHOSPHORUS 3.7 mg/dl (2.5-4.9)
[2016-10-24] MEDS: INSULIN ASPART [NOVOLOG] 3 ML PEN SC SCH ×2 (08:30→13:04)
[2016-10-24] MEDS: LINAGLIPTIN 5 MG TABLET PO SCH (08:31)
[2016-10-24] MEDS: ASPIRIN (EC) 81 MG TAB PO SCH (08:31)
[2016-10-24] MEDS: BENAZEPRIL 10 MG TAB PO SCH (08:31)
[2016-10-24] MEDS: ENOXAPARIN 40 MG/0.4 ML SYG SC SCH (08:37)
[2016-10-24] MEDS: FENOFIBRATE 145 MG TAB PO SCH (08:41)
[2016-10-24] MEDS: METOPROLOL 25 MG TAB PO SCH (08:41)
[2016-10-24] MEDS: FAMOTIDINE 20 MG TAB PO SCH (08:42)
--- NOTE | 2016-10-24 13:20 | CONS ---
Date/Time of Note Date/Time of Note DATE: 10/24/16 TIME: 13:17 Assessment/Plan Assessment/Plan Additional Assessment/Plan Dyspnea with exertion Preserved ejection fraction CAD with distant history of PCI Hypertension -Patient status post nuclear cardiac perfusion study with borderline evidence of transient ischemic dilatation. Patient with symptoms of shortness of breath exertional with minimal activity. Given the borderline abnormality on the nuclear perfusion study and history, would proceed with cardiac catheterization to rule out obstructive coronary artery disease. This was discussed with the patient and he requests to proceed with cardiac catheterization. Consultation Date/Type/Reason Admit Date/Time Oct 23, 2016 at 03:33 Initial Consult Date Type of Consultation: cv 24 HR Interval Summary Free Text/Dictation Denies chest pain or shortness of breath at rest. Status post stress test yesterday. Exam/Review of Systems Vital Signs Vitals Vital Signs Date Time Temp Pulse Resp B/P Pulse Ox O2 Delivery O2 Flow Rate FiO2 10/24/16 12:00 72 10/24/16 10:59 98.2 18 126/75 98 10/23/16 02:33 Room Air 10/23/16 00:29 3.0 Intake and Output 10/23/16 10/23/16 10/24/16 15:00 23:00 07:00 Intake Total 1500 ml 250 ml Output Total 600 ml Balance 900 ml 250 ml Exam No apparent distress Constitutional: alert, oriented Head: normocephalic Respiratory: other (Coarse breath sounds bilaterally, no wheezing) Cardiovascular: other (S1-S2 heard), regular rate and rhythm Gastrointestinal: bowel sounds, non-tender, soft Extremities: other (No edema) Results Result Diagram: 10/23/16 0020 10/24/16 0643 Results 24 hrs Laboratory Tests Test 10/23/16 17:45 10/23/16 17:53 10/23/16 20:41 10/24/16 06:43 Creatine Kinase 797 #H Creatine Kinase Index 0.3 Creatinine Kinase MB (Mass) 2.30 Troponin I < 0.012 Bedside Glucose 240 H 162 Sodium Level 141 Potassium Level 4.5 Chloride Level 104 Carbon Dioxide Level 26 Anion Gap 16 Blood Urea Nitrogen 18 # Creatinine 0.70 Glucose Level 132 # Calcium Level 9.5 Phosphorus Level 3.7 Magnesium Level 1.6 L Test 10/24/16 08:12 10/24/16 12:50 Bedside Glucose 149 169 Medications Medications Current Medications Aspirin (Halfprin) 81 mg DAILY PO Last administered on 10/24/16 08:31; Admin Dose 81 MG; Start 10/23/16 at 09:00 Benazepril HCl (Lotensin) 10 mg DAILY PO Last administered on 10/24/16 08:31; Admin Dose 10 MG; Start 10/23/16 at 09:00 Fenofibrate (Tricor) 145 mg DAILY PO Last administered on 10/24/16 08:41; Admin Dose 145 MG; Start 10/23/16 at 09:00 Atorvastatin Calcium (Lipitor) 10 mg DAILY@21 PO Last administered on 20:43; Admin Dose 10 MG; Start 10/23/16 at 21:00 Metoprolol Tartrate (Lopressor) 25 mg BID PO Last administered on 10/24/16 08: 41; Admin Dose 25 MG; Start 10/23/16 at 09:00 Diagnostic Test (Pha) 1 ea 1 ea 02 XX ; Start 10/24/16 at 02:00 Sodium Chloride (NS) 1,000 ml @ 75 mls/hr [id number] IV Last administered on 10/23 20:43; Admin Dose 75 MLS/HR; Start 10/23/16 at 04:04 Lorazepam (Ativan) 0.5 mg Q8H PRN PO ANXIETY; Start 10/23/16 at 04:30 Ondansetron HCl (Zofran Inj) 4 mg Q6H PRN IV NAUSEA AND/OR VOMITING; Start at 04:30 Nitroglycerin (Nitroglycerin (Sl Tab) 0.4 Mg) 1 tab Q5M PRN SL CHEST PAIN; Start 10/23/16 at 04:30 Acetaminophen (Tylenol Tab) 650 mg Q6H PRN PO PAIN LEVEL 1-3 OR FEVER; Start at 04:30 Morphine Sulfate (morphine) 2 mg Q4H PRN IV PAIN LEVEL 7-10; Start 10/23/16 at 04:30 Docusate Sodium (Colace) 100 mg Q12H PRN PO CONSTIPATION; Start 10/23/16 at 04: 30 Magnesium Hydroxide (Milk Of Mag) 30 ml DAILY PRN PO CONSTIPATION; Start at 04:30 Bisacodyl (Dulcolax Supp) 10 mg DAILY PRN [place] CONSTIPATION; Start 10/23/16 at 04 :30 Famotidine (Pepcid) 20 mg Q12 PO Last administered on 10/24/16 08:42; Admin Dose 20 MG; Start 10/23/16 at 09:00 Enoxaparin Sodium (Lovenox) 40 mg DAILY SC Last administered on 10/23/16 10:35 ; Admin Dose 40 MG; Start 10/23/16 at 09:00 Miscellaneous Information 1 ea NOTE XX ; Start 10/23/16 at 05:00 Glucose (Glutose) 15 gm Q15M PRN PO DECREASED GLUCOSE; Start 10/23/16 at 05:00 Glucose (Glutose) 22.5 gm Q15M PRN PO DECREASED GLUCOSE; Start 10/23/16 at 05: 00 Dextrose (D50w Syringe) 25 ml Q15M PRN IV DECREASED GLUCOSE; Start 10/23/16 at 05:00 Dextrose (D50w Syringe) 50 ml Q15M PRN IV DECREASED GLUCOSE; Start 10/23/16 at 05:00 Glucagon (Glucagen) 1 mg Q15M PRN IM DECREASED GLUCOSE; Start 10/23/16 at 05:00 Glucose (Glutose) 15 gm Q15M PRN BUCCAL DECREASED GLUCOSE; Start 10/23/16 at 05 :00 Linagliptin (Tradjenta) 5 mg DAILY PO Last administered on 10/24/16 08:31; Admin Dose 5 MG; Start 10/23/16 at 13:00 Aleksander Jiménez DO Oct 24, 2016 13:20
[2016-10-24] MEDS: MAGNESIUM SULFATE 2 GM/50 ML 50 ML IVPB ONE ×2 (14:30→17:31)
--- NOTE | 2016-10-24 14:34 | PN ---
Date/Time of Note Date/Time of Note DATE: 10/24/16 TIME: 14:32 Assessment/Plan VTE Prophylaxis VTE Prophylaxis Intervention: LMWH Lines/Catheters IV [facility]ter Type (from [facility]): Peripheral IV Urinary Cath still in place: No Assessment/Plan Assessment/Plan 61-year-old male with: 1. Chest pain: Patient has been ruled out for acute coronary syndrome, 2D echocardiogram stable , stress test is equivocal per Dr Jiménez, plan for Angio today Patient has been NPO after MN Repleting magnesium 2. Coronary artery disease: Continue current medications. 3. Hypertension: Continue current medications 4. Hyperlipidemia: continue current medications 5. Diabetes mellitus: Continue home medications Prophylaxis: Lovenox for DVT prophylaxis, Pepcid for GI prophylaxis Disposition: Angiogram pending today Subjective 24 Hr Interval Summary Free Text/Dictation Patient denies any shortness of breath currently, he denies chest pain, he has been n.p.o. awaiting angiogram today. Replete magnesium. Exam/Review of Systems Vital Signs Vitals Vital Signs Date Time Temp Pulse Resp B/P Pulse Ox O2 Delivery O2 Flow Rate FiO2 10/24/16 12:00 72 10/24/16 10:59 98.2 18 126/75 98 10/23/16 02:33 Room Air 10/23/16 00:29 3.0 Intake and Output 10/23/16 10/23/16 10/24/16 15:00 23:00 07:00 Intake Total 1500 ml 250 ml Output Total 600 ml Balance 900 ml 250 ml Exam Constitutional: alert, oriented, well developed Respiratory: clear to auscultation, normal air movement Cardiovascular: nl pulses, regular rate and rhythm Gastrointestinal: non-tender, soft Musculoskeletal: nl extremities to inspection Extremities: normal pulses 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, nl mental status, nl speech, nl strength Results Result Diagram: 10/23/16 0020 10/24/16 0643 Results 24 hrs Laboratory Tests Test 10/23/16 17:45 10/23/16 17:53 10/23/16 20:41 10/24/16 06:43 Creatine Kinase 797 #H Creatine Kinase Index 0.3 Creatinine Kinase MB (Mass) 2.30 Troponin I < 0.012 Bedside Glucose 240 H 162 Sodium Level 141 Potassium Level 4.5 Chloride Level 104 Carbon Dioxide Level 26 Anion Gap 16 Blood Urea Nitrogen 18 # Creatinine 0.70 Glucose Level 132 # Calcium Level 9.5 Phosphorus Level 3.7 Magnesium Level 1.6 L Test 10/24/16 08:12 10/24/16 12:50 Bedside Glucose 149 169 Medications Medications Current Medications Aspirin (Halfprin) 81 mg DAILY PO Last administered on 10/24/16 08:31; Admin Dose 81 MG; Start 10/23/16 at 09:00 Benazepril HCl (Lotensin) 10 mg DAILY PO Last administered on 10/24/16 08:31; Admin Dose 10 MG; Start 10/23/16 at 09:00 Fenofibrate (Tricor) 145 mg DAILY PO Last administered on 10/24/16 08:41; Admin Dose 145 MG; Start 10/23/16 at 09:00 Atorvastatin Calcium (Lipitor) 10 mg DAILY@21 PO Last administered on 20:43; Admin Dose 10 MG; Start 10/23/16 at 21:00 Metoprolol Tartrate (Lopressor) 25 mg BID PO Last administered on 10/24/16 08: 41; Admin Dose 25 MG; Start 10/23/16 at 09:00 Diagnostic Test (Pha) 1 ea 1 ea 02 XX ; Start 10/24/16 at 02:00 Sodium Chloride (NS) 1,000 ml @ 75 mls/hr [id number] IV Last administered on 10/23 20:43; Admin Dose 75 MLS/HR; Start 10/23/16 at 04:04 Lorazepam (Ativan) 0.5 mg Q8H PRN PO ANXIETY; Start 10/23/16 at 04:30 Ondansetron HCl (Zofran Inj) 4 mg Q6H PRN IV NAUSEA AND/OR VOMITING; Start at 04:30 Nitroglycerin (Nitroglycerin (Sl Tab) 0.4 Mg) 1 tab Q5M PRN SL CHEST PAIN; Start 10/23/16 at 04:30 Acetaminophen (Tylenol Tab) 650 mg Q6H PRN PO PAIN LEVEL 1-3 OR FEVER; Start at 04:30 Morphine Sulfate (morphine) 2 mg Q4H PRN IV PAIN LEVEL 7-10; Start 10/23/16 at 04:30 Docusate Sodium (Colace) 100 mg Q12H PRN PO CONSTIPATION; Start 10/23/16 at 04: 30 Magnesium Hydroxide (Milk Of Mag) 30 ml DAILY PRN PO CONSTIPATION; Start at 04:30 Bisacodyl (Dulcolax Supp) 10 mg DAILY PRN [place] CONSTIPATION; Start 10/23/16 at 04 :30 Famotidine (Pepcid) 20 mg Q12 PO Last administered on 10/24/16 08:42; Admin Dose 20 MG; Start 10/23/16 at 09:00 Enoxaparin Sodium (Lovenox) 40 mg DAILY SC Last administered on 10/23/16 10:35 ; Admin Dose 40 MG; Start 10/23/16 at 09:00 Miscellaneous Information 1 ea NOTE XX ; Start 10/23/16 at 05:00 Glucose (Glutose) 15 gm Q15M PRN PO DECREASED GLUCOSE; Start 10/23/16 at 05:00 Glucose (Glutose) 22.5 gm Q15M PRN PO DECREASED GLUCOSE; Start 10/23/16 at 05: 00 Dextrose (D50w Syringe) 25 ml Q15M PRN IV DECREASED GLUCOSE; Start 10/23/16 at 05:00 Dextrose (D50w Syringe) 50 ml Q15M PRN IV DECREASED GLUCOSE; Start 10/23/16 at 05:00 Glucagon (Glucagen) 1 mg Q15M PRN IM DECREASED GLUCOSE; Start 10/23/16 at 05:00 Glucose (Glutose) 15 gm Q15M PRN BUCCAL DECREASED GLUCOSE; Start 10/23/16 at 05 :00 Linagliptin 5 mg 5 mg DAILY PO Last administered on 10/24/16 08:31; Admin Dose 5 MG; Start 10/23/16 at 13:00 Magnesium Sulfate (Magnesium Sulfate 2 Gm/50 ml) 50 ml @ 25 mls/hr ONCE ONCE IVPB ; Start 10/24/16 at 14:30; Stop 10/24/16 at 16:29; Status KONRAD DUONG Oct 24, 2016 14:34
[2016-10-24] MEDS ORDERED: MIDAZOLAM 1 MG/ML 2 ML INJ ONE (14:42)
[2016-10-24] MEDS ORDERED: IODIXANOL LOCM 100 ML BTL ONE (14:42)
[2016-10-24] MEDS ORDERED: VERAPAMIL 5 MG INJ ONE (14:42)
[2016-10-24] MEDS ORDERED: LIDOCAINE 1% (MDV) 20 ML INJ ONE (14:42)
[2016-10-24] MEDS ORDERED: FENTAnyl 50 MCG/ML VIAL ONE (14:42)
--- NOTE | 2016-10-24 15:05 | EN ---
Date/Time of Note Date/Time of Note DATE: 10/24/16 TIME: 15:02 Event Note Cardiology Cardiology Event Note [facility] nuclear perfusion report Date of procedure 10/23/2016 This is a 61-year-old male with history of CAD presents with shortness of breath with exertion Baseline heart rate 70, baseline blood pressure 153/80, peak blood pressure 153/ 86 Baseline ECG sinus rhythm at 70 bpm, nonspecific T-wave abnormalities Lexiscan administered as per protocol Symptoms of shortness of breath which resolved ECG with no significant changes No significant arrhythmias seen ECG interpretation nonischemic The nuclear portion will be interpreted by our radiology colleagues Aleksander Jiménez DO Oct 24, 2016 15:05
[2016-10-24] MEDS ORDERED: HEPARIN 1000 UNITS/ML 10 ML INJ ONE (15:23)
[2016-10-24] MEDS ORDERED: ADENOSINE 90 MG in SOD CHLORIDE 0.9% 90 ML IV SCH (15:39)
[2016-10-24] MEDS ORDERED: SOD CHLORIDE 0.9% 1,000 ML IV SCH (16:11)
--- NOTE | 2016-10-24 16:19 | OPR ---
Date/Time of Note Date/Time of Note DATE: 10/24/16 TIME: 16:12 Operative Report Procedure Date: Oct 24, 2016 Preoperative Diagnosis Dyspnea with exertion Abnormal stress test Postoperative Diagnosis Nonobstructive coronary artery disease Operation Performed Left heart catheterization Right and left coronary angiogram Interpretation and supervision of right left coronary angiogram Left ventricular pressure measurements Conscious sedation Left radial artery approach Surgeon: Aleksander Jiménez DO Anesthesia Type: other (Conscious sedation) Estimated Blood Loss: minimal Specimen: none Complications: no Pt Condition Post Procedure: stable Disposition: PACU Indications Patient with history of coronary artery disease presents with dyspnea with exertion and nuclear cardiac perfusion study with transient ischemic dilation Operative\Procedure Findings Hemodynamics LV pressure 91/6 with EDP of 8 Aortic pressure 91/63 Coronary anatomy Left main is a large caliber vessel with no segment disease. LAD is a medium caliber vessel patent proximal stent with distal edge 10% stenosis, mid stent patent with 30% in-stent restenosis. Circumflex is a medium caliber vessel with distal 10% disease RCA is a medium caliber vessel and dominant with ostial 20% stenosis, mid 20% stenosis, mid PDA with 40 to 50 % stenosis Procedure Description Patient brought to the [facility] after informed consent. Patient was prepped and draped as per protocol. Left radial access was obtained and a 5/6 Estonian sheath was placed in left radial artery. A 5 Estonian [place] catheter was used to engage left main but unsuccessful. We next used the entire catheter to engage the RCA and antrum was performed. We then used a 5 Estonian JL 3.5 diagnostic catheter and engage left main and antrum was performed. Given patient with moderate disease noted in the mid PDA, we next used a 6 Estonian JR4 guide to engage the RCA and antrum was performed which demonstrated stenosis in the mid PDA of approximately 40-50%. All catheters and wires removed. There was no immediate complications. Aleksander Jiménez DO Oct 24, 2016 16:18
[2016-10-24] MEDS ORDERED: hydrALAzine 20 MG INJ ONE (18:39)
[2016-10-24] MEDS ORDERED: hydrALAzine 20 MG INJ IV ONE (19:00)
== END 2016-10-24 21:45 | disposition home or self-care (01) ==
LOC: E/R 20:07 → TEL 10-23 03:33
PROVIDERS: ADMIT Internal Medicine; ATTEND Internal Medicine
DX: I25.10 Atherosclerotic heart disease of native coronary artery without angina pectoris (principal); Z98.61 Coronary angioplasty status; E78.5 Hyperlipidemia, unspecified; E11.9 Type 2 diabetes mellitus without complications; I10 Essential (primary) hypertension; R07.9 Chest pain, unspecified; Z79.82 Long term (current) use of aspirin; Z87.891 Personal history of nicotine dependence
CPT/HCPCS: 36415; 71010; 78452; 80048; 80053; 80061; 82550; 82553; 82962; 83036; 83735; 83880; 84100; 84484; 85025; 85610; 85730; 93005; 93017; 93306; 93458; 94664; 99285; A9500; A9505; C1769; C1887; G0378; J0153; J0360; J1644; J1650; J1815; J2250; J2785; J3010; J3475; J7030; J7040; Q9967